=== PATIENT | male | born 1985 | race Caucasian/White ===

== ENCOUNTER 2017-06-02 12:35 | Emergency (ER) | payer MEDICAID ==
[~2017-06-02] VITALS: Ht 185.4 cm; Wt 87.0 kg
[2017-06-02 12:37] VITALS: BP 155/73
[2017-06-02] MEDS ORDERED: FLUORESCEIN OPHTHALMIC 1 MG STRIP ONE (13:11)
[2017-06-02] MEDS ORDERED: PROPARACAINE OPHTH 0.5%, 15ML ONE (13:11)
== END 2017-06-02 14:30 | disposition home or self-care (01) ==
LOC: ED 13:46
DX: T15.01XA Foreign body in cornea, right eye, initial encounter (principal); X58.XXXA Exposure to other specified factors, initial encounter; Y93.89 Activity, other specified; Y99.8 Other external cause status; Y92.89 Other specified places as the place of occurrence of the external cause
CPT/HCPCS: 65222; 99284

== ENCOUNTER 2017-12-02 19:28 | Emergency (ER) | payer MEDICAID, OTHER ==
[~2017-12-02] VITALS: Ht 185.4 cm; Wt 80.0 kg
[2017-12-02 19:51] VITALS: BP 151/80
[2017-12-02] MEDS ORDERED: HYDROcodone/APAP 5/325 TABLET ONE (21:55)
[2017-12-02] MEDS ORDERED: HYDROcodone/APAP 5/325 TABLET PO ONE (22:00)
== END 2017-12-02 22:01 | disposition home or self-care (01) ==
LOC: ED 21:55
DX: S92.351A Displaced fracture of fifth metatarsal bone, right foot, initial encounter for closed fracture (principal); F17.200 Nicotine dependence, unspecified, uncomplicated; X50.1XXA Overexertion from prolonged static or awkward postures, initial encounter; Y93.89 Activity, other specified; Y99.8 Other external cause status; Y92.328 Other athletic field as the place of occurrence of the external cause
CPT/HCPCS: 29515; 99284